=== PATIENT | male | born 1965 | race Caucasian/White ===

== ENCOUNTER 2022-11-23 17:19 | Emergency (ER) | payer BC, OTHER ==
[2022-11-23] MEDS ORDERED: DIPHTH,PERTUSS(ACELL),TET 0.5 ML DISP.SYRIN IM ONE ×2 (17:34→17:54)
[2022-11-23] MEDS ORDERED: ACETAMINOPHEN 500 MG TABLET (FP) PO ONE (17:34)
[2022-11-23] MEDS ORDERED: ACETAMINOPHEN 325 MG TABLET (FP) ONE (17:54)
[2022-11-23 18:08] VITALS: BP 148/99; PULSE 58; RESP 20; TEMP 98.3; BMI 22.8
[2022-11-23] MEDS ORDERED: LIDOCAINE HCL 2% (20ML MULTI-DOSE VIAL) ONE (18:18)
== END 2022-11-23 18:53 | disposition home or self-care (01) ==
LOC: FER 17:19
PROC: 3E0T3BZ Introduction of Anesthetic Agent into Peripheral Nerves and Plexi, Percutaneous Approach (ICD-10-PCS; principal; 2022-11-23)
PROC: 2W3HX1Z Immobilization of Left Thumb using Splint (ICD-10-PCS; 2022-11-23)
PROC: 3E0234Z Introduction of Serum, Toxoid and Vaccine into Muscle, Percutaneous Approach (ICD-10-PCS; 2022-11-23)
DX: S69.92XA Unspecified injury of left wrist, hand and finger(s), initial encounter (principal); S00.12XD Contusion of left eyelid and periocular area, subsequent encounter; S60.417A Abrasion of left little finger, initial encounter; M79.89 Other specified soft tissue disorders; Y04.8XXA Assault by other bodily force, initial encounter; Y93.9 Activity, unspecified; Y92.009 Unspecified place in unspecified non-institutional (private) residence as the place of occurrence of the external cause
CPT/HCPCS: 73130-TC-LT-FY; 73140-TC-LT-FY; 90715; 99283-25

== ENCOUNTER 2022-11-29 06:12 | Observation (INO) | payer BC, OTHER ==
[2022-11-29 06:38] VITALS: RESP 18; BMI 22.8
[2022-11-29] MEDS ORDERED: MECLIZINE HCL 25 MG TABLET (FP) PO ONE (09:17)
[2022-11-29] MEDS ORDERED: LORazepam 2 MG/ML SDV VIAL IVPUSH ONE (09:18)
[2022-11-29] MEDS ORDERED: MECLIZINE HCL 25 MG TABLET (FP) ONE (09:56)
[2022-11-29 10:03] LABS: HEMATOCRIT 45.4 % (35.4-49); HEMOGLOBIN 15.8 G/dL (11.7-16.9); MCH 32.3 pg (25.7-33.7); MCHC 34.8 g/dl (32.0-35.9); MEAN CELL VOLUME 92.9 fl (80-96); MEAN PLT VOLUME 8.8 fl (7.5-11.1); PLATELET COUNT 233.5 10^3/uL (134-434); RBC 4.89 10^6/uL (4.00-5.60); RDW 13.7 % (11.9-15.9); WHITE BLOOD COUNT 5.4 10^3/uL (4.0-10.8)
[2022-11-29 10:15] LABS: ALBUMIN 4.2 g/dl (3.4-5.0); BILIRUBIN,TOTAL 0.8 mg/dl (0.2-1); CALCIUM 9.3 mg/dl (8.5-10); CREATININE 1.3 mg/dl (0.55-1.3); POTASSIUM 4.6 mmol/L (3.5-5.1); TOT PROT 7.4 g/dl (6.4-8.2)
[2022-11-29 10:34] VITALS: BP 127/82; PULSE 52; TEMP 97.6
== END 2022-11-29 18:41 | disposition home or self-care (01) ==
LOC: FER 06:12 → FM/S 09:18
PROVIDERS: ADMIT Student in an Organized Health Care Education/Training Program; ATTEND Student in an Organized Health Care Education/Training Program
PROC: 3E033GC Introduction of Other Therapeutic Substance into Peripheral Vein, Percutaneous Approach (ICD-10-PCS; principal; 2022-11-29)
DX: R42 Dizziness and giddiness (principal)
CPT/HCPCS: 36415; 70150-TC-FY; 70450-TC; 70551-TC; 80053; 85027; 87635; 99285-25; G0378